=== PATIENT | female | born 1995 ===

== ENCOUNTER 2018-12-27 16:08 | Emergency (ER) | payer SELFPAY ==
[2018-12-27 16:23] VITALS: BMI 36.6
[2018-12-27 16:26] VITALS: BP 137/85; PULSE 73; RESP 18; TEMP 98.5; O2SAT 100
[2018-12-27] MEDS ORDERED: Lidocaine 5% Patch TD ONE (16:29)
--- NOTE | 2018-12-27 17:30 | ED PDOC ---
Arrival/HPI - General Chief Complaint: Back Pain Historian: Patient - History of Present Illness Narrative History of Present Illness (Text): 12/27/18 17:21 23 year old female, with no significant past medical history, presents to the ED for evaluation of back pain since 6pm yesterday. Patient informs pain localized to the left side of her mid thoracic back, described as sharp pain, worsened with deep inspirations. Patient reports taking Advil yesterday with mild improvement to symptoms. However, the symptoms returned this morning, prompting her to present to the ED for evaluation. Patient denies any trauma or injury to the back. Patient denies any new cosmetic changes. Patient denies any fevers, chills, headache, dizziness, chest pain, shortness of breath, dyspnea on exertion, cough, abdominal pain, nausea, vomiting, diarrhea, urinary symptoms, neck pain, or any other complaints. Patient denies any OCP use or smoking cigarettes. Patient states her LNMP was 12/19/18. Time/Duration: 24 hours Symptom Onset: Gradual Symptom Course: Unchanged Activities at Onset: Light Context: Home Past Medical History - Provider Review Nursing Documentation Reviewed: Yes - Infectious Disease Hx of Infectious Diseases: None - Psychiatric Hx Substance Use: No - Surgical History Hx Section: Yes (x2) - Anesthesia Hx Anesthesia: Yes Hx Anesthesia Reactions: No Hx Malignant Hyperthermia: No Family/Social History - Physician Review Nursing Documentation Reviewed: Yes Family/Social History: Unknown Family HX Smoking Status: Never Smoked Hx Alcohol Use: No Hx Substance Use: No Allergies/Home Meds Allergies/Adverse Reactions: Allergies No Known Allergies Allergy (Verified 12/27/18 16:23) Review of Systems - Physician Review All systems were reviewed & negative as marked: Yes - Review of Systems Constitutional: absent: Fevers Respiratory: absent: SOB, Cough Cardiovascular: absent: Chest Pain Gastrointestinal: absent: Abdominal Pain, Diarrhea, Nausea, Vomiting Genitourinary Female: absent: Dysuria, Urine Output Changes Musculoskeletal: Back Pain. absent: Neck Pain Skin: absent: Rash Neurological: absent: Headache, Dizziness Psychiatric: absent: Anxiety Physical Exam Vital Signs Reviewed: Yes Vital Signs Temp Pulse Resp BP Pulse Ox 12/27/18 16:25 98.5 F 73 18 137/85 100 Temperature: Afebrile Blood Pressure: Normal Pulse: Regular Respiratory Rate: Normal Appearance: Positive for: Well-Appearing, Non-Toxic, Comfortable Pain Distress: None Mental Status: Positive for: Alert and Oriented X 3 - Systems Exam Head: Present: Atraumatic, Normocephalic Pupils: Present: PERRL Extroacular Muscles: Present: EOMI Conjunctiva: Present: Normal Respiratory/Chest: Present: Clear to Auscultation, Good Air Exchange. No: Respiratory Distress, Accessory Muscle Use Cardiovascular: Present: Regular Rate and Rhythm, Normal S1, S2. No: Murmurs Abdomen: No: Tenderness, Distention, Peritoneal Signs Back: Present: Normal Inspection, Paraspinal Tenderness (Left lower lumbar paraspinal tenderness). No: Midline Tenderness Upper Extremity: Present: Normal Inspection. No: Cyanosis, Edema Lower Extremity: Present: Normal Inspection. No: Edema Neurological: Present: GCS=15, CN II-XII Intact, Speech Normal Skin: Present: Warm, Dry, Normal Color. No: Rashes Psychiatric: Present: Alert, Oriented x 3, Normal Insight, Normal Concentration Medical Decision Making ED Course and Treatment: 12/27/18 16:29 Impression: 23 year old female presents to the ED for evaluation of back pain. Differential Diagnosis included but are not limited to: -- Musculoskeletal pain Plan: -- Lidoderm -- Toradol -- Valium -- Reassess and disposition Prior Visits: Notes and results from previous visits were reviewed. Progress Notes: - Medication Orders Current Medication Orders: Discontinued Medications Diazepam (Valium) 5 mg PO ONCE ONE; Protocol Stop: 12/27/18 16:31 Last Admin: 12/27/18 16:56 Dose: 5 mg Ketorolac Tromethamine (Toradol) 60 mg IM STAT STA Stop: 12/27/18 16:30 Last Admin: 12/27/18 16:56 Dose: 60 mg [facility] Pain Assessment Document 12/27/18 16:56 OCS (Rec: 12/27/18 16:58 OCS [facility] [place] Pain Reassessment Is this a pain reassessment? No Sleep Is patient sleeping during reassessment? No Presence of Pain Presence of Pain Yes Pain Scale Used Protocol: PSCALES Pain Scale Used Numeric Location Left, Right or Bilateral Left Pain Location Body Site Back Description Description Constant Intensity of Pain at present 8 Pain Behavior Irritability Facial Grimacing Aggravating Factors ADL's IM Administration Charges Document 12/27/18 16:56 OCS (Rec: 12/27/18 16:58 OCS [facility] [place] Injection Site MAR Injection Site Left Deltoid Charges for Administration # of IM Administrations 1 Lidocaine (Lidoderm) 1 ea TD ONCE ONE Stop: 12/27/18 16:30 Last Admin: 12/27/18 16:56 Dose: 1 ea MAR Transdermal Patch Site Document 12/27/18 16:56 OCS (Rec: 12/27/18 16:56 [facility]CS [facility] [place] Transdermal Patch Site Transdermal Patch Site Left Lower Back - Scribe Statement The provider has reviewed the documentation as recorded by the Scribe Zander Gibson. All medical record entries made by the Scribe were at my direction and personally dictated by me. I have reviewed the chart and agree that the record accurately reflects my personal performance of the history, physical exam, medical decision making, and the department course for this patient. I have also personally directed, reviewed, and agree with the discharge instructions and disposition. Disposition/Present on Arrival - Present on Arrival Any Indicators Present on Arrival: No History of DVT/PE: No History of Uncontrolled Diabetes: No Urinary Catheter: No History of Decub. Ulcer: No History Surgical Site Infection Following: None - Disposition Have Diagnosis and Disposition been Completed?: Yes Diagnosis: Muscle strain of left upper back Disposition: HOME/ ROUTINE Disposition Time: 19:10 Patient Plan: Discharge Condition: STABLE Discharge Instructions (ExitCare): Muscle Strain (DC) Print Language: PORTUGUESE Additional Instructions: All medical record entries made by the Scribe were at my direction and personally dictated by me. I have reviewed the chart and agree that the record accurately reflects my personal performance of the history, physical exam, medical decision making, and the department course for this patient. I have also personally directed, reviewed, and agree with the discharge instructions and disposition. Please follow up in clinic in 3-5 days Please apply heat packs to the back pain in addition to Motrin for pain Prescriptions: Lidocaine 5% [Lidoderm] 5 % TP Q12 #5 patch Naproxen 500 mg PO Q6H #10 ect Referrals: Veronica Lagunas MD [Medical Doctor] - Follow up with primary [facility] [place] [Outside] - Follow up with primary Forms: [employer] ([employer])
[2018-12-27] MEDS ORDERED: Oxycodone/Acetaminophen 5/325 mg Tab PO STA (18:58)
--- NOTE | 2018-12-27 18:58 | RAD ---
Date of service: 12/27/2018 HISTORY: back pain COMPARISON: No prior. FINDINGS: BONES: Alignment maintained. No fracture. DISC SPACES: Normal. SOFT TISSUES: Normal. OTHER FINDINGS: None. IMPRESSION: Normal radiographs of the thoracic spine.
== END 2018-12-27 19:17 | disposition home or self-care (01) ==
LOC: ED 16:08
DX: S29.012A Strain of muscle and tendon of back wall of thorax, initial encounter (principal); X58.XXXA Exposure to other specified factors, initial encounter
CPT/HCPCS: 72070; 81025; 96372; 99282; J1885